=== PATIENT | female | born 1960 | race Caucasian/White ===

== ENCOUNTER 2019-06-07 14:17 | Outpatient (CLI) | payer BC, SELFPAY ==
[2019-06-07 14:46] LABS: Influenza Control Valid (Valid)
== END 2019-06-07 14:18 | disposition home or self-care (01) ==
LOC: CHSLAB 14:20
PROVIDERS: PCP Internal Medicine; Visit Provider Internal Medicine
DX: R50.9 Fever, unspecified (principal); R51 Headache
CPT/HCPCS: 87804

== ENCOUNTER 2019-06-08 08:53 | Outpatient (CLI) | payer BC, SELFPAY ==
[2019-06-08 09:04] LABS: Basophils Absolute Auto 0.09 K/mm3 (0.00-0.10); Basophils Percent Auto 1.1 % (0.0-1.0); Eosinophils Absolute Auto 0.24 K/mm3 (0.02-0.50); Eosinophils Percent Auto 2.9 % (1.0-6.0); Hematocrit 46.3 % (35.0-49.0); Hemoglobin 15.3 g/dL (12.0-15.0); Immature Granulocyte Absolute 0.03 K/mm3 (0.00-0.00); Immature Granulocyte Percent A 0.4 % (0.0-0.0); Lymphocytes Absolute Auto 2.62 K/mm3 (1.10-4.50); Lymphocytes Percent Auto 31.8 % (18.0-42.0); Mean Corpuscular Hemoglobin 31.8 pg (27.0-31.0); Mean Corpuscular Volume 96.3 fL (78.0-102.0); Mean Platelet Volume 9.8 fl (9.2-11.8); Monocytes Absolute Auto 0.65 K/mm3 (0.10-0.90); Monocytes Percent Auto 7.9 % (2.0-11.0); Neutrophils Absolute Auto 4.6 K/mm3 (1.7-7.2); Neutrophils Percent Auto 55.9 % (50.0-70.0); Platelet Count Result 281 K/mm3 (150-420); Red Blood Count 4.81 M/mm3 (4.20-5.40); Red Cell Distribution Width 12.6 % (11.6-14.4); White Blood Count 8.2 K/mm3 (4.8-10.8)
== END 2019-06-08 08:54 | disposition home or self-care (01) ==
LOC: CHSLAB 08:55
PROVIDERS: PCP Internal Medicine; Visit Provider Internal Medicine
DX: R05 Cough (principal); R50.9 Fever, unspecified
CPT/HCPCS: 36415; 85025

== ENCOUNTER 2019-10-09 16:31 | Outpatient (CLI) | payer BC, SELFPAY ==
--- NOTE | ~2019-10-09 | XR_ITS ---
XR foot RT min 3V 10/09/2019 17:14 INDICATION: Right foot pain. Abscess. PROCEDURE: 4 views right foot COMPARISON: No prior studies for comparison. FINDINGS: Fracture, dislocation or subluxation is not identified. Mild polyarticular osteoarthritis. No evidence for osteomyelitis. The soft tissues appear within normal limits. No foreign bodies are i dentified. IMPRESSION: 1: NO ACUTE BONE OR JOINT ABNORMALITY IDENTIFIED. Reviewed, dictated and finalized at location A.
== END 2019-10-09 16:32 | disposition home or self-care (01) ==
LOC: CHSIMG 16:33
PROVIDERS: PCP Internal Medicine; Visit Provider Internal Medicine
DX: M79.671 Pain in right foot (principal); L02.611 Cutaneous abscess of right foot
CPT/HCPCS: 73630

== ENCOUNTER 2019-11-06 08:05 | Emergency (ER) | payer BC, SELFPAY ==
[2019-11-06 08:15] VITALS: BP 144/72; PULSE 70; RESP 20; TEMP 36.7; O2SAT 99
--- NOTE | 2019-11-06 08:37 | ED.EXTPRO ---
HPI - Extremity Problem General Chief complaint: Extremity Problem,Nontraumatic Stated complaint: sore on right foot Time Seen by Provider: 11/06/19 08:38 History of Present Illness HPI Narrative: 59-year-old female patient is here with chief complaints of soreness with an open wound and drainage from the right webspace of 4th and 5th toe for the last 3 days. The patient states that she had a similar problem about 3 weeks back and was seen by primary care physician and diagnosed with the MRSA infection. She was treated with doxycycline that she finished on of this month. She had been doing well until 3 days ago when she noted some more maceration the webspace and the infection has gotten worse since then and she has worsening of pain and some redness of the foot as well. She denies any trouble weight-bearing states that the pain is there all the time and gets aggravated by wearing shoes. She denies any associated fever or chills. She denies any injury. Patient is not a diabetic. Related Data Home Medications Medication Instructions Recorded Confirmed aspirin 81 mg tablet,delayed 81 mg PO DAILY 02/17/19 11/06/19 release cholecalciferol (vitamin D3) 125 5,000 unit PO DAILY 02/17/19 11/06/19 mcg (5,000 unit) capsule Allergies Allergy/AdvReac Type Severity Reaction Status Date / Time alcohol Allergy Mild PASSES OUT Unverified 04/03/19 13:51 aspirin Allergy Mild Nausea and Unverified 04/03/19 13:51 Vomiting codeine Allergy Mild Nausea and Unverified 04/03/19 13:51 Vomiting hydrocodone Allergy Mild Nausea and Unverified 04/03/19 13:51 Vomiting meperidine Allergy Mild Nausea and Unverified 04/03/19 13:51 Vomiting Review of Systems Review of Systems: All systems reviewed & are unremarkable except as noted in HPI and below PMFSH Past Medical History Medical History Chest pain in adult Dyslipidemia Family history of early CAD Neck pain on right side Stenosis of carotid artery Surgical History Surgical History H/O arthroscopy H/O: hysterectomy Hx of appendectomy Status post left foot surgery Family History Family History Mother Diabetes mellitus Hypertension Family history of elevated blood lipids Family history of chronic obstructive pulmonary disease Family history of lung cancer Sibling Acute myocardial infarction Other Family history of alcoholism Family history of arthritis Family history of malignant neoplasm Social History Social History Smoking status: Current every day smoker Alcohol intake: current Exam Narrative: Exam Narrative: The patient has a macerated area in the 4th interdigital space of the right foot. There is obvious but purulent drainage and there is also some redness. There is some swelling noted on the plantar aspect of the 4th and 5th MTP area. There is no fluctuant mass or drainage noted there. Patient has some erythema to the dorsum of the foot however there is no streaking going into the ankle joint. Const: General: no acute distress and alert Orientation/consciousness: patient oriented x3 Eyes: Pupils: Equal, round and reactive pupils present Neck: Neck: normal visual inspection Chest: Chest palpation & inspection: normal inspection of the chest Resp: Effort & Inspection: normal respiratory effort Skin: General skin exam: normal color Rashes: no rashes Neuro: General: patient oriented x3 and moves all extremities Course Course Emergency Course: Patient is advised to soak the foot in Betadine and keep the area clean. She will be discharged with a prescription for Bactrim DS however we also organized for the patient to see a disease case manager rn and she has an appointment at 2:00 p.m. today. No x-rays were done at this visit shay
== END 2019-11-06 09:14 | disposition home or self-care (01) ==
PROVIDERS: Emergency Provider Emergency Medicine; PCP Internal Medicine
DX: L08.9 Local infection of the skin and subcutaneous tissue, unspecified (principal)
CPT/HCPCS: 99283

== ENCOUNTER 2019-11-11 08:51 | Outpatient (CLI) | payer BC, SELFPAY ==
--- NOTE | ~2019-11-11 | MR_ITS ---
EXAMINATION: MR foot RT wo con DATE: 11/11/2019 10:07 INDICATION: Abscess at the right foot TECHNIQUE: Magnetic resonance imaging (MRI) of the right fore/mid foot was performed without intraven ous contrast. Sequences included sagittal T1-weighted FSE, sagittal fluid sensitive FSE STIR, coronal PD-weighted FS FSE, coronal T1-weighted FSE, axial PD-weighted FS FSE, and axial PD-weighted FSE. COMPARISON: Right foot radiographs dated 10/09/2019 FINDINGS: Bone alignment is normal. Normal marrow signal. No fracture, reactive edema or pathologic marrow repl acing process. Mild osteoarthritis at the first metatarsophalangeal and multiple predominantly distal interphalangeal joints. Physiologic amount fluid in the joint spaces. No bursitis, Alise synovitis or other abnormal fluid collections to suggest abscess. Intrinsic musculature of the visualized fore an d midfoot is unremarkable. Flexor and extensor tendons are normal. The Lisfranc ligament as well as t he collateral ligament complex at the metatarsophalangeal and interphalangeal joints are normal.. IMPRESSION: 1. Mild polyarticular osteoarthritis in the right forefoot. Otherwise unremarkable study with no absc ess.. Reviewed, dictated and finalized at location B. IMPRESSION: 1. Mild polyarticular osteoarthritis in the right forefoot. Otherwise unremarka ble study with no abscess..
== END 2019-11-11 08:52 | disposition home or self-care (01) ==
LOC: CHSIMG 08:52
PROVIDERS: PCP Internal Medicine; Visit Provider Podiatrist
DX: M79.671 Pain in right foot (principal)
CPT/HCPCS: 73718

== ENCOUNTER 2019-12-08 08:42 | Emergency (ER) | payer BC, SELFPAY ==
--- NOTE | ~2019-12-08 | XR_ITS ---
EXAMINATION: XR chest 1V portable 12/08/2019 09:52 INDICATION: Fever and cough PROCEDURE: AP portable chest COMPARISON: Comparison to multiple prior studies sequentially, with oldest reviewed study dated 02/14. FINDINGS: The lungs are clear. The cardiomediastinal silhouette is within normal limits. There are no pleural effusions. There is no pneumothorax suspected. IMPRESSION: 1: NO ACUTE CARDIOPULMONARY DISEASE. Reviewed, dictated and finalized at location A.
[2019-12-08 08:50] VITALS: BP 138/80; PULSE 88; RESP 20; TEMP 36.6; O2SAT 97
--- NOTE | 2019-12-08 08:52 | ED.FEVER ---
HPI - Fever General Chief Complaint: Weakness Stated Complaint: FEVER BODY ACHES Time Seen by Provider: 12/08/19 08:58 Source: patient Mode of arrival: ambulatory Limitations: no limitations History of Present Illness HPI Narrative: 59-year-old woman comes in today complaining of joint aches. She states that 3 days ago she had nausea, 1 episode of vomiting, and fever. States that she has had decreased appetite since but she has had no vomiting. She states that she went camping 2 weeks ago in [place] but denies finding any attached ticks. She has had no sick contacts, shortness of breath, cough, sore throat, rhinorrhea, diarrhea, abdominal pain, rash, hematuria, dysuria or urinary frequency. She has had no new medications recently. MD elicited complaint: fever Onset (ago): day(s) (3) Exacerbating factors: other (movement) Relieving factors: nothing Associated symptoms: vomiting (3 days ago) Treatments prior to arrival fever: acetaminophen Related Data Home Medications Medication Instructions Recorded Confirmed aspirin 81 mg tablet,delayed 81 mg PO DAILY 02/17/19 12/08/19 release cholecalciferol (vitamin D3) 125 5,000 unit PO DAILY 02/17/19 12/08/19 mcg (5,000 unit) capsule omeprazole 40 mg PO DAILY 12/08/19 12/08/19 Allergies Allergy/AdvReac Type Severity Reaction Status Date / Time alcohol Allergy Mild PASSES OUT Unverified 04/03/19 13:51 aspirin Allergy Mild Nausea and Unverified 04/03/19 13:51 Vomiting codeine Allergy Mild Nausea and Unverified 04/03/19 13:51 Vomiting hydrocodone Allergy Mild Nausea and Unverified 04/03/19 13:51 Vomiting meperidine Allergy Mild Nausea and Unverified 04/03/19 13:51 Vomiting Review of Systems Constitutional: Constitutional: Denies chills, Reports fatigue and Reports fever(s) Eyes: Eyes: Denies change in vision and Denies photophobia ENT: Denies dysphagia, Denies nasal congestion and Denies sore throat Cardiovascular: Cardiovascular: Denies chest pain and Denies radiating jaw, neck or arm pain Respiratory: Respiratory: Denies cough, Denies dyspnea and Denies wheezing Gastrointestinal: Gastrointestinal: Reports as per HPI, Denies abdominal pain, Denies diarrhea, Reports nausea and Reports vomiting Genitourinary: Genitourinary: Denies hematuria, Denies nocturia and Denies dysuria Musculoskeletal: Musculoskeletal: Reports as per HPI, Denies back pain, Reports myalgias, Denies arthralgias and Reports joint swelling Integumentary/Breasts: Skin/Breast: Denies pruritus, Denies erythema and Denies rash Neurologic: Denies vertigo, Denies dizziness and Denies syncope Endocrine: Endocrine: Denies polydipsia and Denies polyuria Hematologic/Lymphatic: Hematologic/Lymphatic: Denies easy bleeding and Denies easy bruising Allergic/Immunologic: Allergic/Immunologic: Denies tongue swelling PMFSH Past Medical History Medical History Chest pain in adult Dyslipidemia Family history of early CAD Neck pain on right side Stenosis of carotid artery Surgical History Surgical History H/O arthroscopy H/O: hysterectomy Hx of appendectomy Status post left foot surgery Social History Social History Smoking status: Current every day smoker Alcohol intake: current Exam Const: Other: mild-mod acute distress HENMT: Head: normal to inspection Ears: external ears normal, TM's normal bilaterally and EAC's normal General nose exam: Normal nares present Face and sinus: normal facial exam Mouth: Yes moist mucous membranes Throat: posterior oropharynx normal Eyes: Conjunctivae: conjunctivae normal Pupils: Equal, round and reactive pupils present EOM: EOMs intact bilaterally Neck: Neck: normal visual inspection and no lymphadenopathy Resp: Effort & Inspection: normal respiratory effort
[2019-12-08] MEDS: KETOROLAC (*BKC) 60 MG/2 ML VIAL IM (09:26)
[2019-12-08 09:36] LABS: Basophils Absolute Auto 0.02 K/mm3 (0.00-0.10); Basophils Percent Auto 0.3 % (0.0-1.0); Eosinophils Absolute Auto 0.48 K/mm3 (0.02-0.50); Eosinophils Percent Auto 6.2 % (1.0-6.0); Hematocrit 41.5 % (35.0-49.0); Hemoglobin 13.9 g/dL (12.0-15.0); Immature Granulocyte Absolute 0.02 K/mm3 (0.00-0.00); Immature Granulocyte Percent A 0.3 % (0.0-0.0); Lymphocytes Percent Auto 10.3 % (18.0-42.0); Mean Corpuscular HGB Conc 33.5 g/dL (32.0-36.0); Mean Corpuscular Hemoglobin 31.2 pg (27.0-31.0); Mean Platelet Volume 10.6 fl (9.2-11.8); Monocytes Absolute Auto 0.43 K/mm3 (0.10-0.90); Monocytes Percent Auto 5.5 % (2.0-11.0); Neutrophils Percent Auto 77.4 % (50.0-70.0); Platelet Count Result 194 K/mm3 (150-420); Red Blood Count 4.46 M/mm3 (4.20-5.40); White Blood Count 7.8 K/mm3 (4.8-10.8)
[2019-12-08 09:42] LABS: Add Urine Microscopic? YES; Appearance Urine Clear (Clear); Bilirubin Urine Negative (Negative); Blood Urine 2+ (Negative); Color Urine Yellow (Yellow); Glucose Urine UA Negative (Negative); Ketones Urine Negative (Negative); Leukocyte Esterase Ur Negative (Negative); Nitrate Urine Negative (Negative); Protein Urine Negative (Negative); Urobilinogen Urine 0.2 mg/dL (0.2-1.0)
[2019-12-08 09:54] LABS: Bacteria Urine Trace /hpf; Squamous Epithelial Cell Urine Few /hpf (Few); WBC Urine 0-3 /hpf (0-3)
[2019-12-08 09:55] LABS: Influenza Control Valid (Valid); Lactic Acid Reflex 1.1 mmol/L (0.4-2.0)
[2019-12-08 09:58] LABS: Alanine Aminotransferase 40 U/L (14-59); Albumin Level 3.1 g/dL (3.4-5.0); Alkaline Phosphatase 81 U/L (46-116); Anion Gap 12 mmol/L (8-16); Aspartate Amino Transferase 18 U/L (15-37); Bilirubin,Total 0.6 mg/dL (0.00-1.00); Blood Urea Nitrogen 11 mg/dL (7-18); Calcium 8.6 mg/dL (8.5-10.1); Carbon Dioxide 25 mmol/L (21-32); Chloride 102 mmol/L (98-108); Estimated CRCL calculation 63 ml/min; Estimated Glomerular Filt Rate > 60; Glucose 99 mg/dL (70-99); Osmolality Calculated 287 mOsm/kg (285-295); Potassium 3.9 mmol/L (3.5-5.1); Sodium 139 mmol/L (136-145); Total Protein 7.2 g/dL (6.4-8.2)
[2019-12-08 10:01] LABS: CRP 12.7 mg/dL (0.0-0.9); Creatine Kinase 49 U/L (26-192); Lactate Dehydrogenase 186 U/L (81-234)
[2019-12-08 10:26] VITALS: BP 118/69; PULSE 76; RESP 20; TEMP 37.1; O2SAT 100
[2019-12-08 10:35] LABS: HIV 1 P24 AG Negative (Negative); HIV 1/2 AB Negative (Negative)
[2019-12-08 10:42] LABS: Erythrocyte Sedimentation Rate 39 mm/hr (0-20)
[2019-12-09 02:12] LABS: SARS-CoV-2 RNA PCR Negative
[2019-12-12 16:38] LABS: Lyme Disease Ab (IgM), Blot Negative (Negative); Lyme Disease Ab(IgG), Blot Negative (Negative)
[2019-12-13 18:01] LABS: Anti Nuclear Antibody Titer 1:40 (Negative)
== END 2019-12-08 10:27 | disposition home or self-care (01) ==
PROVIDERS: Emergency Provider Emergency Medicine; PCP Internal Medicine
DX: M25.50 Pain in unspecified joint (principal); Z20.828 Contact with and (suspected) exposure to other viral communicable diseases
CPT/HCPCS: 36415; 71045; 80053; 81001; 82550; 83605; 83615; 83874; 85025; 85652; 86038; 86039; 86140; 86617; 86703; 86757; 87635; 87804; 96372; 99283; C9803; J1885; U0003

== ENCOUNTER 2020-01-09 09:21 | Outpatient (CLI) | payer BC, SELFPAY ==
[2020-01-09 09:37] LABS: Basophils Absolute Auto 0.08 K/mm3 (0.00-0.10); Eosinophils Absolute Auto 0.36 K/mm3 (0.02-0.50); Eosinophils Percent Auto 4.5 % (1.0-6.0); Hematocrit 43.2 % (35.0-49.0); Hemoglobin 14.1 g/dL (12.0-15.0); Immature Granulocyte Absolute 0.02 K/mm3 (0.00-0.00); Immature Granulocyte Percent A 0.3 % (0.0-0.0); Lymphocytes Absolute Auto 1.77 K/mm3 (1.10-4.50); Lymphocytes Percent Auto 22.3 % (18.0-42.0); Mean Corpuscular HGB Conc 32.6 g/dL (32.0-36.0); Mean Corpuscular Hemoglobin 31.3 pg (27.0-31.0); Mean Platelet Volume 9.8 fl (9.2-11.8); Monocytes Absolute Auto 0.47 K/mm3 (0.10-0.90); Monocytes Percent Auto 5.9 % (2.0-11.0); Neutrophils Absolute Auto 5.3 K/mm3 (1.7-7.2); Platelet Count Result 288 K/mm3 (150-420); Red Cell Distribution Width 13.5 % (11.6-14.4)
[2020-01-09 11:26] LABS: Alanine Aminotransferase 21 U/L (14-59); Albumin Level 3.6 g/dL (3.4-5.0); Alkaline Phosphatase 74 U/L (46-116); Anion Gap 10 mmol/L (8-16); Aspartate Amino Transferase 11 U/L (15-37); Bilirubin,Total 0.5 mg/dL (0.00-1.00); Blood Urea Nitrogen 9 mg/dL (7-18); CRP 1.3 mg/dL (0.0-0.9); Calcium 9.1 mg/dL (8.5-10.1); Carbon Dioxide 28 mmol/L (21-32); Chloride 104 mmol/L (98-108); Estimated Glomerular Filt Rate > 60; Glucose 87 mg/dL (70-99); Osmolality Calculated 291 mOsm/kg (285-295); Potassium 4.4 mmol/L (3.5-5.1); Sodium 142 mmol/L (136-145)
[2020-01-12 09:38] LABS: Anti Cyclic Citrullinated Pept 29 Units (<20)
[2020-01-13 23:10] LABS: Anti Nuclear Antibody Pattern Nuclear, Nucleolar
[2020-01-15 11:05] LABS: ANCA Screen Negative (Negative)
== END 2020-01-09 09:22 | disposition home or self-care (01) ==
LOC: CHSLAB 09:23
PROVIDERS: PCP Internal Medicine; Visit Provider Internal Medicine
DX: M13.0 Polyarthritis, unspecified (principal)
CPT/HCPCS: 36415; 80053; 85025; 86021; 86038; 86039; 86140; 86200

== ENCOUNTER 2020-04-11 13:32 | Outpatient (CLI) | payer BC, SELFPAY ==
[2020-04-12 19:17] LABS: SARS-CoV-2 RNA PCR Negative
== END 2020-04-11 13:33 | disposition home or self-care (01) ==
PROVIDERS: PCP Internal Medicine; Visit Provider Internal Medicine
DX: Z20.822 Contact with and (suspected) exposure to COVID-19 (principal)
CPT/HCPCS: C9803; U0003; U0005

== ENCOUNTER 2020-05-21 09:48 | Outpatient (CLI) | payer BC, SELFPAY ==
[2020-05-21 10:02] LABS: Appearance Urine Clear (Clear); Basophils Absolute Auto 0.08 K/mm3 (0.00-0.10); Basophils Percent Auto 0.9 % (0.0-1.0); Bilirubin Urine Negative (Negative); Color Urine Yellow (Yellow); Eosinophils Absolute Auto 0.32 K/mm3 (0.02-0.50); Eosinophils Percent Auto 3.7 % (1.0-6.0); Glucose Urine UA Negative (Negative); Hematocrit 41.2 % (35.0-49.0); Immature Granulocyte Absolute 0.03 K/mm3 (0.00-0.00); Immature Granulocyte Percent A 0.3 % (0.0-0.0); Ketones Urine Negative (Negative); Leukocyte Esterase Ur Negative (Negative); Lymphocytes Absolute Auto 2.15 K/mm3 (1.10-4.50); Lymphocytes Percent Auto 24.7 % (18.0-42.0); Mean Corpuscular HGB Conc 31.6 g/dL (32.0-36.0); Mean Corpuscular Hemoglobin 29.9 pg (27.0-31.0); Mean Corpuscular Volume 94.7 fL (78.0-102.0); Mean Platelet Volume 9.8 fl (9.2-11.8); Monocytes Percent Auto 6.9 % (2.0-11.0); Neutrophils Absolute Auto 5.5 K/mm3 (1.7-7.2); Neutrophils Percent Auto 63.5 % (50.0-70.0); Nitrate Urine Negative (Negative); Platelet Count Result 250 K/mm3 (150-420); Protein Urine Negative (Negative); Red Blood Count 4.35 M/mm3 (4.20-5.40); Red Cell Distribution Width 12.8 % (11.6-14.4); Specific Grav Ur <= 1.005 (1.010-1.020); Urobilinogen Urine 0.2 mg/dL (0.2-1.0); White Blood Count 8.7 K/mm3 (4.8-10.8); pH Urine 5.5 (5.0-8.0)
[2020-05-21 10:07] LABS: Add Urine Microscopic? YES; Blood Urine Trace-Intact (Negative)
[2020-05-21 10:08] LABS: Bacteria Urine Trace /hpf; RBC Urine None seen /hpf (0-2); Squamous Epithelial Cell Urine Rare /hpf (Few); WBC Urine None seen /hpf (0-3)
[2020-05-21 10:35] LABS: Alanine Aminotransferase 17 U/L (14-59); Albumin Level 3.7 g/dL (3.4-5.0); Alkaline Phosphatase 78 U/L (46-116); Anion Gap 8 mmol/L (8-16); Aspartate Amino Transferase 16 U/L (15-37); Bilirubin,Total 0.6 mg/dL (0.00-1.00); Blood Urea Nitrogen 14 mg/dL (7-18); CRP < 0.5 mg/dL (0.0-0.9); Calcium 8.5 mg/dL (8.5-10.1); Carbon Dioxide 29 mmol/L (21-32); Chloride 103 mmol/L (98-108); Estimated Glomerular Filt Rate > 60; Glucose 90 mg/dL (70-99); Osmolality Calculated 290 mOsm/kg (285-295); Potassium 4.3 mmol/L (3.5-5.1); Sodium 140 mmol/L (136-145); Total Protein 6.9 g/dL (6.4-8.2)
== END 2020-05-21 09:49 | disposition home or self-care (01) ==
LOC: CHSLAB 09:50
PROVIDERS: PCP Internal Medicine; Visit Provider Internal Medicine
DX: M06.9 Rheumatoid arthritis, unspecified (principal); Z79.899 Other long term (current) drug therapy; R60.9 Edema, unspecified
CPT/HCPCS: 36415; 80053; 81001; 85025; 86140

== ENCOUNTER 2020-06-17 12:00 | Outpatient (CLI) | payer BC, SELFPAY ==
--- NOTE | ~2020-06-17 | XR_ITS ---
EXAMINATION: XR ribs LT 2V w CXR 2V DATE: 06/17/2020 12:30 INDICATION: Left upper axillary pain. Shortness of breath. TECHNIQUE: AP and lateral views of the chest and 3 views of the left ribs were obtained. COMPARISON: Chest radiograph dated 12/08/[address] dated 06/26/2016 FINDINGS: Possible old healed anterior left seventh rib fracture deformity, unchanged since 2017. No acute rib fractures identified. Lungs are clear with no focal airspace opacities, pulmonary edema, pleural effu lila or pneumothorax. Cardiomediastinal silhouette is normal. Small peripherally calcified heterotopi c ossicle at the right breast. Mild thoracic spondylosis. IMPRESSION: 1. No acute rib fracture or acute cardiopulmonary disease. Reviewed, dictated and finalized at location B.
== END 2020-06-17 12:01 | disposition home or self-care (01) ==
LOC: CHSIMG 12:04
PROVIDERS: PCP Internal Medicine; Visit Provider Internal Medicine
DX: R07.9 Chest pain, unspecified (principal)
CPT/HCPCS: 71046; 71100

== ENCOUNTER 2020-06-20 07:58 | Outpatient (CLI) | payer BC, SELFPAY ==
--- NOTE | ~2020-06-20 | MM_ITS ---
EXAMINATION: MM screening lorna BI w pancho HISTORY: Screening mammogram TECHNIQUE: Craniocaudal and mediolateral oblique 3-D tomosynthesis images were obtained and synthetic 2-D images were generated. CAD analysis was submitted and interpreted. COMPARISON: 05/14/2016, 08/27/2010 bilateral digital screening mammogram examinations BREAST PARENCHYMAL COMPOSITION: There are scattered areas of fibroglandular density. FINDINGS: Occasional benign calcification. There is no evidence of suspicious mass, calcification, or architectural distortion to suggest malignancy in either breast. There has been no suspicious interv al change. IMPRESSION: 1. No mammographic evidence of malignancy. 2. Recommend routine screening mammography in one year. BI-RADS Category 2: Benign finding(s). Reviewed, dictated and finalized at location A.
== END 2020-06-20 07:59 | disposition home or self-care (01) ==
LOC: CHSIMG 08:00
PROVIDERS: PCP Internal Medicine; Visit Provider Internal Medicine
DX: Z12.31 Encounter for screening mammogram for malignant neoplasm of breast (principal)
CPT/HCPCS: 77063; 77067

== ENCOUNTER 2021-11-21 11:11 | Outpatient (CLI) | payer BC, SELFPAY ==
--- NOTE | ~2021-11-21 | XR_ITS ---
EXAMINATION: XR chest 2V DATE: 11/21/2021 11:37 INDICATION: Upper respiratory infection, bronchitis TECHNIQUE: Frontal and lateral views of the chest are obtained COMPARISON: 06/17/2020 FINDINGS: The lungs are free of acute opacities. No pleural effusion or pneumothorax. The cardiomedia stinal silhouette is normal. There is mild thoracic spondylosis. IMPRESSION: 1. No acute cardiopulmonary abnormality. Reviewed, dictated and finalized at location B.
[2021-11-21 11:26] LABS: Basophils Absolute Auto 0.05 K/mm3 (0.00-0.10); Basophils Percent Auto 0.4 % (0.0-1.0); Eosinophils Absolute Auto 0.26 K/mm3 (0.02-0.50); Eosinophils Percent Auto 2.1 % (1.0-6.0); Hematocrit 44.5 % (35.0-49.0); Hemoglobin 14.5 g/dL (12.0-15.0); Immature Granulocyte Absolute 0.03 K/mm3 (0.00-0.00); Immature Granulocyte Percent A 0.2 % (0.0-0.0); Lymphocytes Absolute Auto 2.66 K/mm3 (1.10-4.50); Lymphocytes Percent Auto 21.6 % (18.0-42.0); Mean Corpuscular HGB Conc 32.6 g/dL (32.0-36.0); Mean Corpuscular Hemoglobin 30.9 pg (27.0-31.0); Mean Corpuscular Volume 94.7 fL (78.0-102.0); Mean Platelet Volume 9.6 fl (9.2-11.8); Monocytes Absolute Auto 1.04 K/mm3 (0.10-0.90); Monocytes Percent Auto 8.5 % (2.0-11.0); Neutrophils Absolute Auto 8.3 K/mm3 (1.7-7.2); Neutrophils Percent Auto 67.2 % (50.0-70.0); Platelet Count Result 269 K/mm3 (150-420); White Blood Count 12.3 K/mm3 (4.8-10.8)
[2021-11-21 11:48] LABS: Alanine Aminotransferase 24 U/L (14-59); Albumin Level 3.7 g/dL (3.4-5.0); Alkaline Phosphatase 91 U/L (46-116); Anion Gap 10 mmol/L (8-16); Aspartate Amino Transferase 19 U/L (15-37); Bilirubin,Total 0.4 mg/dL (0.00-1.00); Blood Urea Nitrogen 11 mg/dL (7-18); Calcium 8.7 mg/dL (8.5-10.1); Carbon Dioxide 26 mmol/L (21-32); Chloride 99 mmol/L (98-108); Estimated Glomerular Filt Rate > 60; Glucose 128 mg/dL (70-99); Osmolality Calculated 281 mOsm/kg (285-295); Potassium 3.6 mmol/L (3.5-5.1); Sodium 135 mmol/L (136-145); Total Protein 7.6 g/dL (6.4-8.2)
== END 2021-11-21 11:12 | disposition home or self-care (01) ==
LOC: CHSLAB 11:14
PROVIDERS: PCP Internal Medicine; Visit Provider Nurse Practitioner Family
DX: J06.9 Acute upper respiratory infection, unspecified (principal); J40 Bronchitis, not specified as acute or chronic
CPT/HCPCS: 36415; 71046; 80053; 85025

== ENCOUNTER 2022-01-05 11:38 | Outpatient (CLI) | payer BC, SELFPAY ==
--- NOTE | ~2022-01-05 | XR_ITS ---
XR knee RT 3V DATE: 01/05/2022 12:02 INDICATION: Posterior and medial right knee pain after twisting injury yesterday TECHNIQUE: [place], AP and lateral views COMPARISON: None FINDINGS: There is prominent suprapatellar knee joint effusion. There is mild periarticular spurring at all 3 compartments. Knee joint spaces appear relatively preserved. No fracture or dislocation, periosteal reaction or bone destruction, radiopaque intra-articular loose body or chondrocalcinosis is detected. Mild superior pole patellar enthesopathy at quadriceps tendon insertion. Osteopenia. IMPRESSION: Prominent suprapatellar knee joint effusion Mild tricompartment osteoarthritis Reviewed, dictated and finalized at location A.
== END 2022-01-05 11:39 | disposition home or self-care (01) ==
LOC: CHSLAB 11:41
PROVIDERS: PCP Internal Medicine; Visit Provider Internal Medicine
DX: M25.561 Pain in right knee (principal); M25.461 Effusion, right knee
CPT/HCPCS: 73562

== ENCOUNTER 2022-05-15 22:29 | Emergency (ER) | payer BC, SELFPAY ==
--- NOTE | ~2022-05-15 | XR_ITS ---
EXAMINATION: XR chest 1V portable DATE: 05/15/2022 23:08 INDICATION: Left chest pain. TECHNIQUE: A single frontal view of the chest was obtained. COMPARISON: Chest 2 views 11/21/2021 FINDINGS: There is no pneumonia, pleural effusion, or pneumothorax. The heart size is normal. IMPRESSION: 1. No acute cardiopulmonary disease. Reviewed, dictated and finalized at location A. 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
--- NOTE | 2022-05-15 22:32 | ED.CHESTPAIN ---
HPI - Chest Pain General Chief Complaint: Syncope Stated Complaint: ambulance Time Seen by Provider: 05/15/22 22:29 History of Present Illness HPI narrative: (2219) 61 year old female arrives to the Emergency Department via EMS. Patient had [place] home from [place] with and complained of chest pain. EMS called . Patient complained of left sided chest pain. Now unresponsive on arrival. She was given Narcan 2 mg IV en route. No change. Accucheck glucose 136. Ammonia capsule used to regain consciousness with patient. She states she is still having left sided chest pain. Patient is poor historian due to intoxication. MD complaint: chest pain Onset (ago): minute(s) Timing of current episode: constant Onset: during rest Pain location: left chest Pain radiation: none Relieving factors: nothing Exacerbating factors: nothing Related Data Home Medications Medication Instructions Recorded Confirmed aspirin 81 mg tablet,delayed 81 mg PO DAILY 02/17/19 12/08/19 release (Adult Low Dose Aspirin) cholecalciferol (vitamin D3) 125 5,000 unit PO DAILY 02/17/19 12/08/19 mcg (5,000 unit) capsule omeprazole 40 mg PO DAILY 12/08/19 12/08/19 Allergies Allergy/AdvReac Type Severity Reaction Status Date / Time alcohol Allergy Mild PASSES OUT Unverified 04/03/19 13:51 aspirin Allergy Mild Nausea and Unverified 04/03/19 13:51 Vomiting codeine Allergy Mild Nausea and Unverified 04/03/19 13:51 Vomiting hydrocodone Allergy Mild Nausea and Unverified 04/03/19 13:51 Vomiting meperidine Allergy Mild Nausea and Unverified 04/03/19 13:51 Vomiting Review of Systems Review of Systems: Unreliable ROS due to patient's intoxication All systems reviewed & are unremarkable except as noted in HPI and below Constitutional: Constitutional: Reports as per HPI and Reports no additional constitutional complaints Eyes: Eyes: Reports as per HPI and Reports no additional eye complaints ENT: Reports system reviewed and no additional complaints, except as documented and Reports as per HPI Cardiovascular: Cardiovascular: Reports as per HPI, Reports no additional cardiovascular complaints and Reports chest pain Respiratory: Respiratory: Reports as per HPI and Reports no additional respiratory complaints Gastrointestinal: Gastrointestinal: Reports as per HPI and Reports no additional gastrointestinal complaints Genitourinary: Genitourinary: Reports no additional female genitourinary complaints and Reports as per HPI Musculoskeletal: Musculoskeletal: Reports no additional musculoskeletal complaints and Reports as per HPI Integumentary/Breasts: Skin/Breast: Reports system reviewed and no additional complaints, except as docu and Reports as per HPI Neurologic: Reports system reviewed and no additional complaints, except as documented and Reports as per HPI Psychiatric: Psychiatric: Reports no additional psychiatric complaints and Reports as per HPI Endocrine: Endocrine: Reports no additional endocrine complaints and Reports as per HPI Hematologic/Lymphatic: Hematologic/Lymphatic: Reports no additional hematologic/lymphatic complaints and Reports as per HPI Allergic/Immunologic: Allergic/Immunologic: Reports no additional allergic/immunologic complaints and Reports as per HPI PMFSH Past Medical History Medical History (Updated 05/16/22 @ 00:09 by Mata Ibarra MD) Chest pain in adult Dyslipidemia Family history of early CAD Neck pain on right side Stenosis of carotid artery Surgical History Surgical History H/O arthroscopy H/O: hysterectomy Hx of appendectomy Status post left foot surgery Family History Family History Mother Diabetes mellitus Hypertension Family history of elevated blood lipids Family history of chronic obstructive pulmonary disease Family history of lung cancer Sibling Acute m
[2022-05-15 22:35] VITALS: BP 127/93; PULSE 80; RESP 20; TEMP 36.8; O2SAT 99
--- NOTE | 2022-05-15 22:40 | ECG_ITS ---
Measurements Intervals [place] Rate: 60 P: 53 IL: 173 QRS: 36 QRSD: 106 T: 43 QT: 405 QTc: 406 Interpretive Statements SINUS RHYTHM INCOMPLETE RIGHT BUNDLE BRANCH BLOCK LOW QRS VOLTAGE IN PRECORDIAL LEADS BORDERLINE T WAVE ABNORMALITY- ANTERIOR LEADS BASELINE ARTIFACT- I, II, III, AVR, AVL, AVF, V2, V4-V6 BORDERLINE ECG NO PREVIOUS ECG AVAILABLE FOR COMPARISON Electronically Signed On 05-16-2022 6:55:37 SENIOR ENVIRONMENTAL TECHNICIAN by Jorge Reyes D.O.
[2022-05-15 23:03] LABS: Basophils Absolute Auto 0.07 K/mm3 (0.00-0.10); Basophils Percent Auto 0.7 % (0.0-1.0); Eosinophils Absolute Auto 0.37 K/mm3 (0.02-0.50); Eosinophils Percent Auto 3.9 % (1.0-6.0); Hematocrit 40.6 % (35.0-49.0); Hemoglobin 13.3 g/dL (12.0-15.0); Immature Granulocyte Absolute 0.02 K/mm3 (0.00-0.00); Immature Granulocyte Percent A 0.2 % (0.0-0.0); Lymphocytes Absolute Auto 3.21 K/mm3 (1.10-4.50); Lymphocytes Percent Auto 33.9 % (18.0-42.0); Mean Corpuscular HGB Conc 32.8 g/dL (32.0-36.0); Mean Corpuscular Hemoglobin 30.9 pg (27.0-31.0); Mean Corpuscular Volume 94.4 fL (78.0-102.0); Mean Platelet Volume 9.9 fl (9.2-11.8); Monocytes Absolute Auto 0.84 K/mm3 (0.10-0.90); Monocytes Percent Auto 8.9 % (2.0-11.0); Neutrophils Percent Auto 52.4 % (50.0-70.0); Platelet Count Result 265 K/mm3 (150-420); Red Cell Distribution Width 12.6 % (11.6-14.4); White Blood Count 9.5 K/mm3 (4.8-10.8)
[2022-05-15 23:16] LABS: Alanine Aminotransferase 15 U/L (14-59); Albumin Level 3.4 g/dL (3.4-5.0); Alkaline Phosphatase 69 U/L (46-116); Anion Gap 10 mmol/L (8-16); Aspartate Amino Transferase 21 U/L (15-37); Bilirubin,Total 0.3 mg/dL (0.00-1.00); Blood Urea Nitrogen 6 mg/dL (7-18); Calcium 8.2 mg/dL (8.5-10.1); Carbon Dioxide 25 mmol/L (21-32); Chloride 99 mmol/L (98-108); Estimated Glomerular Filt Rate > 60; Glucose 106 mg/dL (70-99); Magnesium 1.9 mg/dL (1.8-2.4); Osmolality Calculated 275 mOsm/kg (285-295); Potassium 3.9 mmol/L (3.5-5.1); Sodium 134 mmol/L (136-145)
[2022-05-15 23:18] LABS: Ethanol 237 mg/dL (0-6)
[2022-05-15 23:22] LABS: Appearance Urine Clear (Clear); Bilirubin Urine Negative (Negative); Blood Urine 1+ (Negative); Color Urine Light Yellow (Yellow); Glucose Urine UA Negative (Negative); Ketones Urine Negative (Negative); Leukocyte Esterase Ur Negative (Negative); Nitrate Urine Negative (Negative); Protein Urine Negative (Negative); Specific Grav Ur <= 1.005 (1.010-1.020); Urobilinogen Urine 0.2 mg/dL (0.2-1.0)
[2022-05-15 23:22] LABS: Amphetamine Screen Urine Negative (Negative); Barbiturate Screen Urine Negative (Negative); Benzodiazepines Screen Urine Negative (Negative); Cannabinoid Screen Urine Negative (Negative); Cocaine Screen Urine Negative (Negative); Methadone Screen Urine Negative (Negative); Opiate Screen Urine Negative (Negative); Phencyclidine Screen Urine Negative (Negative)
[2022-05-15 23:26] LABS: Add Urine Microscopic? YES; Bacteria Urine None seen /hpf; RBC Urine 0-2 /hpf (0-2); Squamous Epithelial Cell Urine None seen /hpf (Few); WBC Urine 0-3 /hpf (0-3)
[2022-05-15 23:38] LABS: Base Excess ABG -1.5 mmol/L (0-2); Device ROOM AIR; HCO3 ABG 24.5 mmol/L (23-29); Modified Allen's Test Pass; Oxygen Content ABG 17.9 %vol (16.0-22.0); Oxygen Saturation ABG 95.9 % (95-97); PCO2 ABG 46.1 mmHg (35-45); PO2 ABG 90.8 mmHg (80-90); Site Drawn RIGHT RADIAL; Total Hemoglobin 14.4 g/dL (12.0-18.0); pH ABG 7.34 (7.35-7.45)
[2022-05-15 23:38] LABS: D Dimer 0.71 mg/L (0.19-0.50)
--- NOTE | 2022-05-16 00:03 | PC.NURSE ---
pt reports that she has an allergy to contrast. pt reports that she becomes itchy and has hives when she received it in the past. This RN accompanied by Dr. garzon explained that if she cannot get contrast that we would need to do a VQ scan which we would have to transfer her to [facility] to do. pt explained to s that she does not want contrast or a VQ scan and that she just wants to go home. pt verbalized understanding of what a D Dimer is and verbalized understanding that hers is high and that she could have a blood clot.
[2022-05-16 00:08] VITALS: BP 122/82; PULSE 99; RESP 20; TEMP 36.9; O2SAT 99
== END 2022-05-16 00:12 | disposition home or self-care (01) ==
PROVIDERS: Emergency Provider Emergency Medicine; PCP Internal Medicine
DX: R07.89 Other chest pain (principal); F10.129 Alcohol abuse with intoxication, unspecified; F17.200 Nicotine dependence, unspecified, uncomplicated; Y90.7 Blood alcohol level of 200-239 mg/100 ml; R79.1 Abnormal coagulation profile; Z79.82 Long term (current) use of aspirin; Z79.891 Long term (current) use of opiate analgesic
CPT/HCPCS: 36415; 36600; 71045; 80053; 80307; 81001; 82805; 83735; 84484; 85025; 85380; 93005; 99284

== ENCOUNTER 2022-07-08 09:50 | Outpatient (CLI) | payer BC, SELFPAY ==
--- NOTE | ~2022-07-08 | CT_ITS ---
EXAMINATION:CT lung screening DATE: 07/08/2022 10:08 INDICATION: Personal history of nicotine dependence. Current smoker with 30 pack year history. TECHNIQUE: Computed tomography (CT) of the chest was performed without intravenous contrast. Automate d exposure control and iterative reconstruction technique were employed. The dose-length product (DLP ) was 90.08 mGy-cm. COMPARISON: Chest CT 06/26/2016 FINDINGS: There are small groundglass opacities in left upper lobe. No pleural effusion. The heart si ze is normal. No pericardial effusion. There is mild thoracic spondylosis. IMPRESSION: 1. Lung-RADS category 2: Benign appearance or behavior. Continue annual screening with noncontrast lo w-dose chest CT in 12 months. Reviewed, dictated and finalized at location A. IMPRESSION: 1. Lung-RADS category 2: Benign appearance or behavior. Continue annual screeni ng with noncontrast low-dose chest CT in 12 months.
== END 2022-07-08 09:51 | disposition home or self-care (01) ==
LOC: CHSIMG 09:52
PROVIDERS: PCP Internal Medicine; Visit Provider Internal Medicine
DX: Z12.2 Encounter for screening for malignant neoplasm of respiratory organs (principal); Z87.891 Personal history of nicotine dependence
CPT/HCPCS: 71271

== ENCOUNTER 2022-07-13 08:22 | Outpatient (CLI) | payer BC, SELFPAY ==
--- NOTE | 2022-07-13 08:37 | EST_ITS ---
Patient Info Name: Earle Serna Age: 61 years : 1960 Gender: Female Ht: 64 in Wt: 156 lbs BSA: 1.80 m2 HR: 56 bpm BP: 155 / 88 mmHg Heart Rhythm: Bradycardia Technical Quality: Good Exam Date: 07/13/2022 10:10 AM Exam Location: [facility] Patient Status: Outpatient Admit Date: 07/13/2022 Staff Ordering Physician: Tal Zaragoza MD Attending Provider: Tal Zaragoza MD Exam Type: CA stress ananda w NM Study Info A regadenoson stress test was performed. Summary 1. 1. Negative lexiscan stress test for ischemic ST changes by ECG criteria. 2. 2. Baseline hypertension. 3. 3. Nuclear scan to follow and will be reported separately. Please correlate with it. Protocol: LEXISCAN Stress ECG Details Stage: REST Duration (min): 2 min : 7 sec HR (bpm): 55 SBP (mmHg): 155 DBP (mmHg): 88 Stage: REST Duration (min): 9 min : 59 sec HR (bpm): 50 SBP (mmHg): 155 DBP (mmHg): 88 Stage: STAGE 1 Duration (min): 0 min : 19 sec HR (bpm): 55 SBP (mmHg): 155 DBP (mmHg): 88 Stage: RECOVERY Duration (min): 0 min : 40 sec HR (bpm): 99 SBP (mmHg): 155 DBP (mmHg): 88 Stage: RECOVERY Duration (min): 1 min : 40 sec HR (bpm): 73 SBP (mmHg): 155 DBP (mmHg): 88 Stage: RECOVERY Duration (min): 2 min : 40 sec HR (bpm): 63 SBP (mmHg): 165 DBP (mmHg): 83 Stage: RECOVERY Duration (min): 3 min : 40 sec HR (bpm): 56 SBP (mmHg): 164 DBP (mmHg): 85 Stage: RECOVERY Duration (min): 4 min : 40 sec HR (bpm): 54 SBP (mmHg): 149 DBP (mmHg): 86 Stage: RECOVERY Duration (min): 5 min : 40 sec HR (bpm): 55 SBP (mmHg): 144 DBP (mmHg): 78 Stage: RECOVERY Duration (min): 6 min : 22 sec HR (bpm): 55 SBP (mmHg): 149 DBP (mmHg): 80 Rest HR: 50 bpm Peak HR: 99 bpm Rest Sys BP: 155 mmHg Peak Sys BP: 165 mmHg Max Pred HR: 160 bpm % Max Pred HR: 62 % Target HR: 136 bpm Max RPP: 16,335 bpm*mmHg Termination Reason: Completed Protocol Cardiac Symptoms: None Total Time: 0 min : 19 sec Rest Pratt BP: 88 mmHg Peak Pratt BP: 83 mmHg Total Dose: 0.4 mg Resting ECG Sinus bradycardia, delayed precordial R/S transition. Stress ECG No abnormal ST/T wave changes. Arrhythmias No arrhythmias were observed during the examination. Report Signatures
--- NOTE | 2022-07-13 15:01 | WPDCARIOSTRE ---
Nuclear Stress Test INDICATIONS Indications: CP PROCEDURE Procedure Performed: Myocardial Perf Spect-Multi Procedure: Patient underwent a lexiscan stress test and immediately was injected with 32.0 mCi of cardiolyte. Multiple tomographic images were obtained. These are of good quality. There is evidence of moderate size and moderate severity anterior perfusion defect during stress imaging. A separate resting images were obtained after patient was injected with 11.1 mCi of cardiolyte. Multiple tomographic images were obtained. These are of good quality. There is evidence of moderate size and moderate severity anterior perfusion defect during rest imaging. CONCLUSION Conclusion: 1. Myocardial perfusion imaging demonstrating fixed moderate anterior perfusion defect suggestive of breast attenuation artifact. 2. No reversible ischemia. 3. Left ventriculogram demonstrates normal measured ejection fraction of 56% with no wall motion abnormalities. 4. TID score 1.1 is normal.
== END 2022-07-13 08:23 | disposition home or self-care (01) ==
LOC: CHSCARD 08:23
PROVIDERS: PCP Internal Medicine; Visit Provider Internal Medicine
DX: R07.9 Chest pain, unspecified (principal); J44.9 Chronic obstructive pulmonary disease, unspecified; R42 Dizziness and giddiness; R55 Syncope and collapse
CPT/HCPCS: 78452; 93017; A9502; J2785

== ENCOUNTER 2022-07-14 10:14 | Outpatient (CLI) | payer BC, SELFPAY ==
--- NOTE | ~2022-07-14 | US_ITS ---
EXAMINATION: US carotid duplex BI DATE: 07/14/2022 10:40 INDICATION: COPD presenting with chest pain and dizziness TECHNIQUE: Grayscale, color Doppler, and pulsed Doppler images of the cervical carotid arteries were obtained. The degree of vessel stenosis is placed in one of the following categories: normal, <50%, 5 0-69%, >=70% but less than near-occlusion, near-occlusion, or total occlusion. Note that percent sten osis relative to normal distal artery lumen diameter is indirectly measured from velocity measurement s as described by Gopal, et al. Radiology 2003; [id number]. COMPARISON: None. FINDINGS: RIGHT: The right common carotid artery (CCA) peak systolic velocity (PSV) is 61 cm/s. The right internal car otid artery (ICA) PSV is 79 cm/s. The right ICA end-diastolic velocity (EDV) is 34 cm/s. The right IC A/CCA PSV ratio is 1.3. Grayscale and color Doppler images yield an estimate of <50% diameter reducti on from plaque in the ICA. The external carotid artery (ECA) PSV is 69 cm/s. There is antegrade flow in the right vertebral artery. LEFT: The left CCA PSV is 75 cm/s. The left ICA PSV is 54 cm/s. The left ICA EDV is 21 cm/s. The left ICA/C CA PSV ratio is 0.7. Grayscale and color Doppler images yield an estimate of <50% diameter reduction from plaque in the ICA. The ECA PSV is 68 cm/s. There is antegrade flow in the left vertebral artery. IMPRESSION: 1. <50% stenosis in the right internal carotid artery. 2. <50% stenosis in the left internal carotid artery. Reviewed, dictated and finalized at location L.
== END 2022-07-14 10:15 | disposition home or self-care (01) ==
LOC: CHSIMG 10:15
PROVIDERS: PCP Internal Medicine; Visit Provider Internal Medicine
DX: R07.9 Chest pain, unspecified (principal); J44.9 Chronic obstructive pulmonary disease, unspecified; R42 Dizziness and giddiness; R55 Syncope and collapse; I65.23 Occlusion and stenosis of bilateral carotid arteries
CPT/HCPCS: 93880

== ENCOUNTER 2022-07-17 09:04 | Outpatient (CLI) | payer BC, SELFPAY ==
--- NOTE | 2022-08-24 11:01 | WPDHOLTEREM ---
Holter/Event Monitor Holter/Event Monitor Date of procedure: 07/17/22 Holter/Event Procedure: Event Monitor Indications: Dizziness Conclusion: 1. 30 day event monitor between 07/17/22-08/15/22. This is an auto-triggered monitor. There are 11 available transmissions for analysis. 2. Underlying rhythm is sinus rhythm. Based on transmissions, HR range between 52-150 bpm. 3. Based on transmissions, there are no premature supraventricular complexes. No supraventricular tachycardia. 4. Based on transmissions, there are no premature ventricular complexes. No ventricular tachycardia. 5. No significant pauses greater than 2 seconds. 6. No symptoms available for correlation.
== END 2022-07-17 09:05 | disposition home or self-care (01) ==
LOC: CHSCARD 09:05
PROVIDERS: PCP Internal Medicine; Visit Provider Internal Medicine
DX: R07.9 Chest pain, unspecified (principal); J44.9 Chronic obstructive pulmonary disease, unspecified; R42 Dizziness and giddiness; R55 Syncope and collapse
CPT/HCPCS: 93270

== ENCOUNTER 2022-08-04 08:16 | Outpatient (CLI) | payer BC, SELFPAY | END 2022-08-04 08:17 | disposition home or self-care (01) | LOC: CHSCARD 08:18 | PROVIDERS: PCP Internal Medicine; Visit Provider Internal Medicine | DX: R07.9 Chest pain, unspecified (principal); J44.9 Chronic obstructive pulmonary disease, unspecified; R42 Dizziness and giddiness; R55 Syncope and collapse; R94.2 Abnormal results of pulmonary function studies | CPT/HCPCS: 94060; 94726; 94729 ==

== ENCOUNTER 2022-12-17 11:06 | Outpatient (CLI) | payer BC, SELFPAY ==
--- NOTE | ~2022-12-17 | XR_ITS ---
EXAMINATION: XR ribs LT 2V w CXR 2V DATE: 12/17/2022 11:43 INDICATION: Chest pain. Syncope. Left rib pain. TECHNIQUE: Frontal and lateral views of the chest on 3 radiographs and 2 views on 3 radiographs of th e left ribs were obtained. COMPARISON: Chest single view 05/15/2022 FINDINGS: CHEST TWO VIEWS: There is no pneumonia, pleural effusion, or pneumothorax. The heart size is normal. LEFT RIBS: There is an old healed fracture of left eighth rib. IMPRESSION: 1. No acute rib fracture. Reviewed, dictated and finalized at location E. IMPRESSION: 1. No acute rib fracture.
[2022-12-17 11:23] LABS: Basophils Absolute Auto 0.08 K/mm3 (0.00-0.10); Basophils Percent Auto 0.7 % (0.0-1.0); Eosinophils Absolute Auto 0.14 K/mm3 (0.02-0.50); Eosinophils Percent Auto 1.3 % (1.0-6.0); Hematocrit 45.7 % (35.0-49.0); Hemoglobin 15.2 g/dL (12.0-15.0); Immature Granulocyte Absolute 0.02 K/mm3 (0.00-0.00); Immature Granulocyte Percent A 0.2 % (0.0-0.0); Lymphocytes Absolute Auto 1.99 K/mm3 (1.10-4.50); Lymphocytes Percent Auto 18.4 % (18.0-42.0); Mean Corpuscular HGB Conc 33.3 g/dL (32.0-36.0); Mean Corpuscular Hemoglobin 31.5 pg (27.0-31.0); Mean Corpuscular Volume 94.6 fL (78.0-102.0); Mean Platelet Volume 9.8 fl (9.2-11.8); Monocytes Absolute Auto 0.79 K/mm3 (0.10-0.90); Monocytes Percent Auto 7.3 % (2.0-11.0); Neutrophils Absolute Auto 7.8 K/mm3 (1.7-7.2); Neutrophils Percent Auto 72.1 % (50.0-70.0); Platelet Count Result 278 K/mm3 (150-420); Red Blood Count 4.83 M/mm3 (4.20-5.40); Red Cell Distribution Width 12.3 % (11.6-14.4); White Blood Count 10.8 K/mm3 (4.8-10.8)
[2022-12-17 11:50] LABS: Alanine Aminotransferase 19 U/L (14-59); Albumin Level 3.8 g/dL (3.4-5.0); Alkaline Phosphatase 83 U/L (46-116); Anion Gap 10 mmol/L (8-16); Aspartate Amino Transferase 17 U/L (15-37); Bilirubin,Total 0.6 mg/dL (0.00-1.00); Carbon Dioxide 26 mmol/L (21-32); Chloride 104 mmol/L (98-108); Creatine Kinase 142 U/L (26-192); Estimated Glomerular Filt Rate > 60; Glucose 91 mg/dL (70-99); Potassium 4.1 mmol/L (3.5-5.1); Sodium 140 mmol/L (136-145); Total Protein 7.4 g/dL (6.4-8.2)
[2022-12-17 12:11] LABS: Blood Urea Nitrogen 8 mg/dL (7-18); Calcium 9.5 mg/dL (8.5-10.1); D Dimer 0.79 mg/L (0.19-0.50); Osmolality Calculated 288 mOsm/kg (285-295)
[2022-12-17 12:12] LABS: CRP < 0.5 mg/dL (0.0-0.9); Troponin I < 4.0 ng/L (0.00-60.4)
== END 2022-12-17 11:07 | disposition home or self-care (01) ==
PROVIDERS: PCP Internal Medicine; Visit Provider Internal Medicine
DX: R07.9 Chest pain, unspecified (principal); R55 Syncope and collapse
CPT/HCPCS: 36415; 71046; 71100; 80053; 82550; 82553; 84484; 85025; 85380; 86140

== ENCOUNTER 2022-12-18 08:45 | Outpatient (CLI) | payer BC, SELFPAY ==
--- NOTE | ~2022-12-18 | NM_ITS ---
EXAMINATION: NM lung vent and perfusion DATE: 12/18/2022 10:01 INDICATION: Elevated d-dimer. Chest pain. TECHNIQUE: 35.0 mCi Tc-99m DTPA by inhalation and 5.0 mCi Tc-99m MAA by intravenous route. Scintigra phic images of the chest were obtained. COMPARISON: Chest radiograph dated 12/17/2022 FINDINGS: Moderate-sized ventilation defect with corresponding smaller more subtle perfusion defect at the post erior segment of the right upper lobe without evident corresponding radiographic opacity. No other ve ntilation or perfusion defects appreciated. Likely ingested activity in the stomach and bowels on the ventilation images. IMPRESSION: 1. Low probability for pulmonary embolism. Reviewed, dictated and finalized at location A.
== END 2022-12-18 08:46 | disposition home or self-care (01) ==
LOC: CHSIMG 08:46
PROVIDERS: PCP Internal Medicine; Visit Provider Internal Medicine
DX: R79.1 Abnormal coagulation profile (principal); R07.9 Chest pain, unspecified
CPT/HCPCS: 78582; A9540; A9558